=== PATIENT | female | born 1945 | race Caucasian/White ===

== ENCOUNTER 2016-05-07 13:17 | Inpatient (IN) | payer MEDICARE, MEDICAID ==
[~2016-05-07] VITALS: Ht 162.6 cm; Wt 77.4 kg
[2016-05-07 13:56] LABS: HEMOGLOBIN 11.1 g/dL (12.0-16.0); MEAN CORPUSCULAR HEMOGLOBIN 27.3 pg (26.0-34.0); MEAN CORPUSCULAR HGB CONC 30.7 G/dL (31.0-37.0); MEAN CORPUSCULAR VOLUME 89 fL (80-100); PLATELET COUNT (AUTO) 317 K/uL (150-450); RED BLOOD CELL COUNT(AUTO) 4.04 MIL/uL (4.00-5.20); RED CELL DISTRIBUTION WIDTH 18.7 % (11.5-14.5)
[2016-05-07] MEDS ORDERED: CYCL10 PO (14:02)
[2016-05-07] MEDS ORDERED: HYDR-309 PO (14:02)
[2016-05-07] MEDS ORDERED: MULT-248 PO (14:02)
[2016-05-07] MEDS ORDERED: ACET-2247 PO (14:02)
[2016-05-07] MEDS ORDERED: ONDA4 PO (14:02)
[2016-05-07] MEDS ORDERED: MIRALAX PO (14:02)
[2016-05-07] MEDS ORDERED: FERR-89 PO (14:02)
[2016-05-07] MEDS ORDERED: VITAD400 PO (14:02)
[2016-05-07] MEDS ORDERED: LEVO125 PO (14:02)
[2016-05-07 14:07] LABS: ANION GAP 9 mmol/L (8-16); CALCIUM, TOTAL 9.2 mg/dL (8.8-10.5); CARBON DIOXIDE 27 mmol/L (22-29); CHLORIDE 99 mmol/L (98-107); CREATININE 0.97 mg/dL (0.60-1.30); GLOMERULAR FILTR. RATE CALC 57 mL/min (>60); SODIUM SERUM 135 mmol/L (136-145); UREA NITROGEN, BLOOD 21 mg/dL (7-18)
[2016-05-07 14:10] LABS: WHITE BLOOD COUNT (AUTO) 70.9 K/uL (4.5-11.0)
[2016-05-07 14:13] LABS: ALANINE AMINOTRANSFERASE 33 U/L (12-78); ASPARTATE AMINOTRANSFERASE 31 U/L (15-37); BILIRUBIN,TOTAL 0.2 mg/dL (0.1-1.0); TOTAL PROTEIN, SERUM 7.4 g/dL (6.4-8.2)
[2016-05-07 14:25] LABS: BAND NEUTROPHILS % (MANUAL) 5 % (1-5); LYMPHOCYTES % (MANUAL) 82 % (22-44); RBC MORPHOLOGY COMMENT ABNORMAL RBC MORPH; REACTIVE LYMPHOCYTES 3 % (0-0); TOTAL CELLS COUNTED 100
[2016-05-07] MEDS ORDERED: HALOPERIDOL LACTATE 5 MG/ML VIAL IM ONE (14:30)
[2016-05-07] MEDS ORDERED: DiphenhydrAMINE HCL 50 MG/ML VIAL IM ONE (14:30)
[2016-05-07] MEDS ORDERED: LORazepam 2 MG/ML VIAL IM ONE (14:30)
[2016-05-07 14:34] LABS: HEMATOCRIT 39.7 % (36-46); HEMOGLOBIN 12.4 g/dL (12.0-16.0); MEAN CORPUSCULAR HEMOGLOBIN 27.6 pg (26.0-34.0); MEAN CORPUSCULAR HGB CONC 31.2 G/dL (31.0-37.0); MEAN CORPUSCULAR VOLUME 89 fL (80-100); PLATELET COUNT (AUTO) 332 K/uL (150-450); RED BLOOD CELL COUNT(AUTO) 4.48 MIL/uL (4.00-5.20); RED CELL DISTRIBUTION WIDTH 18.8 % (11.5-14.5)
[2016-05-07 14:43] LABS: WHITE BLOOD COUNT (AUTO) 78.9 K/uL (4.5-11.0)
[2016-05-07 14:57] LABS: RBC MORPHOLOGY COMMENT ABNORMAL RBC MORPH
[2016-05-07 15:06] LABS: BAND NEUTROPHILS % (MANUAL) 4 % (1-5); LYMPHOCYTES % (MANUAL) 82 % (22-44); REACTIVE LYMPHOCYTES 1 % (0-0); TOTAL CELLS COUNTED 100
[2016-05-07 15:07] LABS: THYROID STIMULATING HORMONE 7.81 uIU/mL (0.36-3.74)
[2016-05-07 15:17] LABS: APPEARANCE,URINE CLEAR (CLEAR); GLUCOSE, URINE (UA) NEGATIVE (NEGATIVE); KETONES,URINE NEGATIVE (NEGATIVE); LEUKOCYTE ESTERASE ,URINE NEGATIVE (NEGATIVE); OCCULT BLOOD,URINE NEGATIVE (NEGATIVE); PROTEIN,URINE NEGATIVE (NEGATIVE)
[2016-05-07 15:20] LABS: ADD UA MICROSCOPIC NO
[2016-05-07] MEDS ORDERED: HALOPERIDOL 5 MG TABLET PO PRN (16:30)
[2016-05-07] MEDS ORDERED: TraMADol HCL 50 MG TABLET PO PRN (16:45)
[2016-05-08] VITALS (7 sets, daily range): BP systolic 116–126; BP diastolic 64–83
[2016-05-08] MEDS: FERROUS SULFATE 325 MG EC TABLET PO SCH (06:12)
[2016-05-08] MEDS: LEVOTHYROXINE SODIUM 125 MCG TABLET PO SCH (06:12)
[2016-05-08] MEDS: CYCLOBENZAPRINE HCL 10 MG TABLET PO PRN ×2 (06:12→17:09)
[2016-05-08] MEDS: MULTIVITAMINS WITH MINERALS, THERAPEUTIC TABLET PO SCH (08:21)
[2016-05-08] MEDS: LORazepam 2 MG TABLET PO PRN ×2 (08:27→17:09)
[2016-05-08] MEDS: ONDANSETRON HCL 4 MG TABLET PO PRN ×2 (08:27→17:09)
[2016-05-08] MEDS ORDERED: POLYETHYLENE GLYCOL 3350 17 GM PACKET PO SCH ×2 (09:00→15:00)
[2016-05-08] MEDS ORDERED: CHOLECALCIFEROL (VIT D3) 400 UNITS TABLET PO SCH (09:00)
[2016-05-08] MEDS ORDERED: HYDROCODONE/ACETAMINOPHEN 5-325 MG TABLET PO PRN (10:30)
[2016-05-08] MEDS: OLANZapine 5 MG TABLET PO SCH ×2 (13:16→21:01)
[2016-05-08] MEDS: HYDROCODONE/ACETAMINOPHEN 5-325 MG TABLET PO PRN ×2 (13:39→19:40)
[2016-05-08] MEDS: POLYETHYLENE GLYCOL 3350 17 GM PACKET PO SCH (17:10)
[2016-05-08] MEDS: ZOLPIDEM TARTRATE 10 MG TABLET PO PRN (21:00)
[2016-05-09] MEDS: HYDROCODONE/ACETAMINOPHEN 5-325 MG TABLET PO PRN ×3 (04:04→20:32)
[2016-05-09 04:05] VITALS: BP 122/67
[2016-05-09] MEDS: ONDANSETRON HCL 4 MG TABLET PO PRN ×3 (04:05→20:33)
[2016-05-09] MEDS: CYCLOBENZAPRINE HCL 10 MG TABLET PO PRN ×2 (06:16→17:09)
[2016-05-09] MEDS: FERROUS SULFATE 325 MG EC TABLET PO SCH (06:36)
[2016-05-09] MEDS: LEVOTHYROXINE SODIUM 125 MCG TABLET PO SCH (06:36)
[2016-05-09] MEDS: OLANZapine 5 MG TABLET PO SCH ×2 (09:00→20:36)
[2016-05-09] MEDS: MULTIVITAMINS WITH MINERALS, THERAPEUTIC TABLET PO SCH (10:17)
[2016-05-09] MEDS ORDERED: CHOLECALCIFEROL (VIT D3) 1,000 UNITS TABLET PO SCH (13:45)
[2016-05-09] MEDS: CHOLECALCIFEROL (VIT D3) 2,000 UNITS TABLET PO SCH (15:20)
[2016-05-09] MEDS: POLYETHYLENE GLYCOL 3350 17 GM PACKET PO SCH (16:21)
[2016-05-10] MEDS: CYCLOBENZAPRINE HCL 10 MG TABLET PO PRN ×3 (03:48→18:30)
[2016-05-10] MEDS: ONDANSETRON HCL 4 MG TABLET PO PRN ×3 (03:48→18:30)
[2016-05-10] MEDS: HYDROCODONE/ACETAMINOPHEN 5-325 MG TABLET PO PRN ×4 (03:48→23:25)
[2016-05-10] MEDS: LEVOTHYROXINE SODIUM 125 MCG TABLET PO SCH (06:31)
[2016-05-10] MEDS: FERROUS SULFATE 325 MG EC TABLET PO SCH (06:31)
[2016-05-10 07:48] LABS: HEMOGLOBIN A1C 5.2 % (4.5-6.2)
[2016-05-10 08:54] LABS: CHOL/HDL RATIO 1.8 (3.9-5.7); CREATINE KINASE, TOTAL 56 U/L (26-192); THYROID STIMULATING HORMONE 9.73 uIU/mL (0.36-3.74)
[2016-05-10] MEDS: OLANZapine 5 MG TABLET PO SCH ×2 (09:00→21:00)
[2016-05-10] MEDS ORDERED: CHOLECALCIFEROL (VIT D3) 2,000 UNITS TABLET PO SCH (09:00)
[2016-05-10] MEDS: MULTIVITAMINS WITH MINERALS, THERAPEUTIC TABLET PO SCH (09:45)
[2016-05-10] MEDS: CHOLECALCIFEROL (VIT D3) 2,000 UNITS TABLET PO SCH (09:46)
[2016-05-10 17:22] VITALS: BP 126/83
[2016-05-10] MEDS: POLYETHYLENE GLYCOL 3350 17 GM PACKET PO SCH (17:22)
[2016-05-11] MEDS: ONDANSETRON HCL 4 MG TABLET PO PRN ×4 (01:03→20:31)
[2016-05-11] MEDS: ZOLPIDEM TARTRATE 10 MG TABLET PO PRN (01:03)
[2016-05-11] MEDS: CYCLOBENZAPRINE HCL 10 MG TABLET PO PRN ×2 (01:09→08:14)
[2016-05-11 01:10] VITALS: BP 135/70
[2016-05-11] MEDS: HYDROCODONE/ACETAMINOPHEN 5-325 MG TABLET PO PRN ×3 (05:28→20:30)
[2016-05-11] MEDS: FERROUS SULFATE 325 MG EC TABLET PO SCH (06:43)
[2016-05-11] MEDS: LEVOTHYROXINE SODIUM 125 MCG TABLET PO SCH (06:43)
[2016-05-11] MEDS: LORazepam 2 MG TABLET PO PRN ×2 (08:13→13:57)
[2016-05-11] MEDS: MULTIVITAMINS WITH MINERALS, THERAPEUTIC TABLET PO SCH (08:13)
[2016-05-11] MEDS: OLANZapine 5 MG TABLET PO SCH ×2 (08:13→21:00)
[2016-05-11] MEDS: CHOLECALCIFEROL (VIT D3) 2,000 UNITS TABLET PO SCH (08:13)
[2016-05-11 12:56] LABS: HEPATITIS Bs ANTIGEN SCREEN P Negative (Negative); HEPATITIS C AB SCREEN <0.1 s/co ratio (0.0-0.9)
[2016-05-11] MEDS: POLYETHYLENE GLYCOL 3350 17 GM PACKET PO SCH (17:31)
[2016-05-12] MEDS: HYDROCODONE/ACETAMINOPHEN 5-325 MG TABLET PO PRN ×3 (02:32→18:37)
[2016-05-12] MEDS: ONDANSETRON HCL 4 MG TABLET PO PRN ×3 (02:32→18:38)
[2016-05-12] MEDS: CYCLOBENZAPRINE HCL 10 MG TABLET PO PRN (03:30)
[2016-05-12] MEDS: FERROUS SULFATE 325 MG EC TABLET PO SCH (07:25)
[2016-05-12] MEDS: LEVOTHYROXINE SODIUM 125 MCG TABLET PO SCH (07:25)
[2016-05-12] MEDS: MULTIVITAMINS WITH MINERALS, THERAPEUTIC TABLET PO SCH (10:34)
[2016-05-12] MEDS: OLANZapine 5 MG TABLET PO SCH (10:34)
[2016-05-12] MEDS: CHOLECALCIFEROL (VIT D3) 2,000 UNITS TABLET PO SCH (10:34)
[2016-05-12] MEDS: POLYETHYLENE GLYCOL 3350 17 GM PACKET PO SCH (17:41)
[2016-05-12 20:35] LABS: APPEARANCE,URINE CLEAR (CLEAR); GLUCOSE, URINE (UA) NEGATIVE (NEGATIVE); KETONES,URINE NEGATIVE (NEGATIVE); OCCULT BLOOD,URINE NEGATIVE (NEGATIVE); PROTEIN,URINE NEGATIVE (NEGATIVE)
[2016-05-12 20:39] LABS: ADD UA MICROSCOPIC NO; LEUKOCYTE ESTERASE ,URINE NEGATIVE (NEGATIVE)
[2016-05-13] MEDS: CYCLOBENZAPRINE HCL 10 MG TABLET PO PRN ×3 (02:55→17:33)
[2016-05-13] MEDS: HYDROCODONE/ACETAMINOPHEN 5-325 MG TABLET PO PRN ×3 (02:55→16:01)
[2016-05-13] MEDS: ONDANSETRON HCL 4 MG TABLET PO PRN ×3 (02:55→16:01)
[2016-05-13] MEDS: LEVOTHYROXINE SODIUM 125 MCG TABLET PO SCH (06:30)
[2016-05-13] MEDS: FERROUS SULFATE 325 MG EC TABLET PO SCH (06:30)
[2016-05-13 08:49] VITALS: BP 163/67
[2016-05-13] MEDS: OLANZapine 5 MG TABLET PO SCH ×2 (09:00→20:57)
[2016-05-13 09:17] VITALS: BP 163/77
[2016-05-13] MEDS: MULTIVITAMINS WITH MINERALS, THERAPEUTIC TABLET PO SCH (09:17)
[2016-05-13] MEDS: CHOLECALCIFEROL (VIT D3) 2,000 UNITS TABLET PO SCH (09:17)
[2016-05-13 16:02] VITALS: BP 143/84
[2016-05-13] MEDS: POLYETHYLENE GLYCOL 3350 17 GM PACKET PO SCH (17:31)
[2016-05-14] MEDS: ONDANSETRON HCL 4 MG TABLET PO PRN ×3 (05:03→23:50)
[2016-05-14] MEDS: HYDROCODONE/ACETAMINOPHEN 5-325 MG TABLET PO PRN ×3 (05:03→23:50)
[2016-05-14] MEDS: CYCLOBENZAPRINE HCL 10 MG TABLET PO PRN ×2 (05:03→23:50)
[2016-05-14] MEDS: LEVOTHYROXINE SODIUM 125 MCG TABLET PO SCH (06:32)
[2016-05-14] MEDS: FERROUS SULFATE 325 MG EC TABLET PO SCH (06:32)
[2016-05-14] MEDS: CHOLECALCIFEROL (VIT D3) 2,000 UNITS TABLET PO SCH (08:36)
[2016-05-14] MEDS: OLANZapine 5 MG TABLET PO SCH ×2 (08:36→20:42)
[2016-05-14] MEDS: LORazepam 2 MG TABLET PO PRN (08:36)
[2016-05-14] MEDS: MULTIVITAMINS WITH MINERALS, THERAPEUTIC TABLET PO SCH (08:37)
[2016-05-14] MEDS: POLYETHYLENE GLYCOL 3350 17 GM PACKET PO SCH (17:05)
[2016-05-15] MEDS: LEVOTHYROXINE SODIUM 125 MCG TABLET PO SCH (06:34)
[2016-05-15] MEDS: FERROUS SULFATE 325 MG EC TABLET PO SCH (06:34)
[2016-05-15] MEDS: HYDROCODONE/ACETAMINOPHEN 5-325 MG TABLET PO PRN ×2 (06:41→15:47)
[2016-05-15] MEDS: ONDANSETRON HCL 4 MG TABLET PO PRN ×2 (06:42→15:47)
[2016-05-15] MEDS: CYCLOBENZAPRINE HCL 10 MG TABLET PO PRN ×2 (06:42→18:30)
[2016-05-15] MEDS: OLANZapine 5 MG TABLET PO SCH ×2 (09:00→20:07)
[2016-05-15] MEDS: MULTIVITAMINS WITH MINERALS, THERAPEUTIC TABLET PO SCH (09:00)
[2016-05-15] MEDS: CHOLECALCIFEROL (VIT D3) 2,000 UNITS TABLET PO SCH (09:00)
[2016-05-15] MEDS: POLYETHYLENE GLYCOL 3350 17 GM PACKET PO SCH (16:42)
[2016-05-15 16:47] VITALS: BP 139/91
[2016-05-15] MEDS: MELATONIN 3 MG TABLET PO PRN (21:05)
[2016-05-16] MEDS: FERROUS SULFATE 325 MG EC TABLET PO SCH (06:52)
[2016-05-16] MEDS: LEVOTHYROXINE SODIUM 125 MCG TABLET PO SCH (06:52)
[2016-05-16] MEDS: LORazepam 2 MG TABLET PO PRN ×4 (07:26→19:01)
[2016-05-16] MEDS: ONDANSETRON HCL 4 MG TABLET PO PRN ×3 (07:26→20:11)
[2016-05-16] MEDS: OLANZapine 5 MG TABLET PO SCH ×3 (07:26→20:21)
[2016-05-16] MEDS: HYDROCODONE/ACETAMINOPHEN 5-325 MG TABLET PO PRN ×3 (07:26→20:11)
[2016-05-16] MEDS: CYCLOBENZAPRINE HCL 10 MG TABLET PO PRN ×2 (07:27→13:51)
[2016-05-16] MEDS: MULTIVITAMINS WITH MINERALS, THERAPEUTIC TABLET PO SCH (08:55)
[2016-05-16] MEDS: CHOLECALCIFEROL (VIT D3) 2,000 UNITS TABLET PO SCH (08:55)
[2016-05-16] MEDS ORDERED: LORazepam 2 MG/ML VIAL ONE (12:23)
[2016-05-16] MEDS ORDERED: DiphenhydrAMINE HCL 50 MG/ML VIAL ONE (12:23)
[2016-05-16] MEDS ORDERED: HALOPERIDOL LACTATE 5 MG/ML VIAL IM ONE (12:30)
[2016-05-16] MEDS ORDERED: LORazepam 2 MG/ML VIAL IM ONE (12:30)
[2016-05-16] MEDS ORDERED: DiphenhydrAMINE HCL 50 MG/ML VIAL IM ONE (12:30)
[2016-05-16] MEDS: POLYETHYLENE GLYCOL 3350 17 GM PACKET PO SCH (17:04)
[2016-05-17] MEDS: CYCLOBENZAPRINE HCL 10 MG TABLET PO PRN (02:40)
[2016-05-17] MEDS: HYDROCODONE/ACETAMINOPHEN 5-325 MG TABLET PO PRN ×3 (02:50→18:15)
[2016-05-17] MEDS: ONDANSETRON HCL 4 MG TABLET PO PRN ×3 (02:50→18:15)
[2016-05-17] MEDS: LEVOTHYROXINE SODIUM 125 MCG TABLET PO SCH (06:50)
[2016-05-17] MEDS: FERROUS SULFATE 325 MG EC TABLET PO SCH (06:50)
[2016-05-17] MEDS: OLANZapine 10 MG TABLET PO SCH ×2 (09:22→20:14)
[2016-05-17] MEDS: MULTIVITAMINS WITH MINERALS, THERAPEUTIC TABLET PO SCH (09:23)
[2016-05-17] MEDS: CHOLECALCIFEROL (VIT D3) 2,000 UNITS TABLET PO SCH (09:24)
[2016-05-17] MEDS: POLYETHYLENE GLYCOL 3350 17 GM PACKET PO SCH (17:41)
[2016-05-17] MEDS: LORazepam 2 MG TABLET PO PRN (18:15)
[2016-05-18] MEDS: FERROUS SULFATE 325 MG EC TABLET PO SCH (07:02)
[2016-05-18] MEDS: LEVOTHYROXINE SODIUM 125 MCG TABLET PO SCH (07:02)
[2016-05-18] MEDS: ONDANSETRON HCL 4 MG TABLET PO PRN ×2 (08:30→16:42)
[2016-05-18] MEDS: MULTIVITAMINS WITH MINERALS, THERAPEUTIC TABLET PO SCH (08:30)
[2016-05-18] MEDS: CHOLECALCIFEROL (VIT D3) 2,000 UNITS TABLET PO SCH (08:30)
[2016-05-18] MEDS: OLANZapine 10 MG TABLET PO SCH ×2 (08:30→20:51)
[2016-05-18] MEDS: CYCLOBENZAPRINE HCL 10 MG TABLET PO PRN ×2 (08:32→16:37)
[2016-05-18] MEDS: HYDROCODONE/ACETAMINOPHEN 5-325 MG TABLET PO PRN ×2 (08:33→16:36)
[2016-05-18] MEDS ORDERED: HALOPERIDOL LACTATE 5 MG/ML VIAL IM ONE (09:00)
[2016-05-18] MEDS ORDERED: DiphenhydrAMINE HCL 50 MG/ML VIAL IM ONE (09:00)
[2016-05-18] MEDS ORDERED: LORazepam 2 MG/ML VIAL IM ONE (09:00)
[2016-05-18 16:33] VITALS: BP 188/98
[2016-05-18] MEDS: POLYETHYLENE GLYCOL 3350 17 GM PACKET PO SCH (17:03)
[2016-05-19] MEDS: ACETAMINOPHEN 325 MG TABLET PO PRN ×2 (06:12→18:08)
[2016-05-19] MEDS: CYCLOBENZAPRINE HCL 10 MG TABLET PO PRN ×3 (06:12→18:08)
[2016-05-19] MEDS: FERROUS SULFATE 325 MG EC TABLET PO SCH (06:56)
[2016-05-19] MEDS: LEVOTHYROXINE SODIUM 125 MCG TABLET PO SCH (06:56)
[2016-05-19] MEDS: MULTIVITAMINS WITH MINERALS, THERAPEUTIC TABLET PO SCH (10:04)
[2016-05-19] MEDS: CHOLECALCIFEROL (VIT D3) 2,000 UNITS TABLET PO SCH (10:04)
[2016-05-19] MEDS: OLANZapine 10 MG TABLET PO SCH ×2 (10:04→21:00)
[2016-05-19] MEDS: TraMADol HCL 50 MG TABLET PO PRN ×2 (14:47→20:55)
[2016-05-19] MEDS: POLYETHYLENE GLYCOL 3350 17 GM PACKET PO SCH (17:07)
[2016-05-19 18:18] VITALS: BP 156/76
[2016-05-19 20:52] VITALS: BP 148/62
[2016-05-19] MEDS: HALOPERIDOL LACTATE 5 MG/ML VIAL IM PRN (20:52)
[2016-05-20] MEDS: TraMADol HCL 50 MG TABLET PO PRN ×4 (02:57→22:34)
[2016-05-20] MEDS: LEVOTHYROXINE SODIUM 125 MCG TABLET PO SCH (06:38)
[2016-05-20] MEDS: FERROUS SULFATE 325 MG EC TABLET PO SCH (06:38)
[2016-05-20] MEDS: ACETAMINOPHEN 325 MG TABLET PO PRN (06:38)
[2016-05-20] MEDS: CYCLOBENZAPRINE HCL 10 MG TABLET PO PRN ×3 (06:39→22:34)
[2016-05-20] MEDS: OLANZapine 10 MG TABLET PO SCH ×3 (09:00→21:00)
[2016-05-20] MEDS: MULTIVITAMINS WITH MINERALS, THERAPEUTIC TABLET PO SCH (09:20)
[2016-05-20] MEDS: CHOLECALCIFEROL (VIT D3) 2,000 UNITS TABLET PO SCH (09:20)
[2016-05-20] MEDS: HALOPERIDOL LACTATE 5 MG/ML VIAL IM PRN ×2 (09:22→22:16)
[2016-05-20] MEDS: POLYETHYLENE GLYCOL 3350 17 GM PACKET PO SCH (17:15)
[2016-05-20 22:30] VITALS: BP 131/81
[2016-05-21] MEDS: TraMADol HCL 50 MG TABLET PO PRN ×3 (05:41→19:00)
[2016-05-21] MEDS: ACETAMINOPHEN 325 MG TABLET PO PRN (05:41)
[2016-05-21] MEDS: CYCLOBENZAPRINE HCL 10 MG TABLET PO PRN ×3 (05:41→19:30)
[2016-05-21] MEDS: FERROUS SULFATE 325 MG EC TABLET PO SCH (06:41)
[2016-05-21] MEDS: LEVOTHYROXINE SODIUM 125 MCG TABLET PO SCH (06:42)
[2016-05-21] MEDS: HALOPERIDOL LACTATE 5 MG/ML VIAL IM PRN (09:00)
[2016-05-21] MEDS: MULTIVITAMINS WITH MINERALS, THERAPEUTIC TABLET PO SCH (09:00)
[2016-05-21] MEDS: CHOLECALCIFEROL (VIT D3) 2,000 UNITS TABLET PO SCH (09:00)
[2016-05-21] MEDS: OLANZapine 10 MG TABLET PO SCH (09:00)
[2016-05-21] MEDS: FLUTICASONE PROPIONATE 50 MCG/SPRAY 16 GM NASAL SPRAY NASAL SCH (11:39)
[2016-05-21] MEDS: LORATADINE 10 MG TABLET PO SCH (11:39)
[2016-05-21 12:55] VITALS: BP 117/70
[2016-05-21] MEDS: POLYETHYLENE GLYCOL 3350 17 GM PACKET PO SCH (16:17)
[2016-05-21 19:00] VITALS: BP 126/78
[2016-05-21] MEDS ORDERED: HALOPERIDOL 5 MG TABLET PO SCH (20:00)
[2016-05-21] MEDS: HALOPERIDOL 5 MG TABLET PO SCH ×2 (20:59→21:00)
[2016-05-22] MEDS: FERROUS SULFATE 325 MG EC TABLET PO SCH (07:09)
[2016-05-22] MEDS: LEVOTHYROXINE SODIUM 125 MCG TABLET PO SCH (07:09)
[2016-05-22] MEDS: CYCLOBENZAPRINE HCL 10 MG TABLET PO PRN ×2 (08:31→14:55)
[2016-05-22] MEDS: FLUTICASONE PROPIONATE 50 MCG/SPRAY 16 GM NASAL SPRAY NASAL SCH (08:31)
[2016-05-22] MEDS: MULTIVITAMINS WITH MINERALS, THERAPEUTIC TABLET PO SCH (08:32)
[2016-05-22] MEDS: HALOPERIDOL 5 MG TABLET PO SCH ×2 (08:32→20:48)
[2016-05-22] MEDS: LORATADINE 10 MG TABLET PO SCH (08:32)
[2016-05-22] MEDS: CHOLECALCIFEROL (VIT D3) 2,000 UNITS TABLET PO SCH (08:32)
[2016-05-22] MEDS: TraMADol HCL 50 MG TABLET PO PRN ×3 (08:32→21:15)
[2016-05-22] MEDS: ACETAMINOPHEN 325 MG TABLET PO PRN (08:34)
[2016-05-22] MEDS: POLYETHYLENE GLYCOL 3350 17 GM PACKET PO SCH (16:26)
[2016-05-22] MEDS ORDERED: FUROSEMIDE 20 MG TABLET PO SCH (17:00)
[2016-05-22] MEDS ORDERED: HALOPERIDOL LACTATE 5 MG/ML VIAL IM ONE (19:30)
[2016-05-22 21:00] VITALS: BP 155/83
[2016-05-22 21:33] VITALS: BP 155/83
[2016-05-22] MEDS: MELATONIN 3 MG TABLET PO PRN (22:15)
[2016-05-23 02:40] VITALS: BP 171/87
[2016-05-23] MEDS ORDERED: LORazepam 2 MG/ML VIAL IM ONE (03:00)
[2016-05-23] MEDS ORDERED: DiphenhydrAMINE HCL 50 MG/ML VIAL IM ONE (03:00)
[2016-05-23] MEDS ORDERED: HALOPERIDOL LACTATE 5 MG/ML VIAL IM ONE (03:00)
[2016-05-23] MEDS: LEVOTHYROXINE SODIUM 125 MCG TABLET PO SCH (07:17)
[2016-05-23] MEDS: FERROUS SULFATE 325 MG EC TABLET PO SCH (07:17)
[2016-05-23 08:11] VITALS: BP 147/68
[2016-05-23] MEDS: CHOLECALCIFEROL (VIT D3) 2,000 UNITS TABLET PO SCH (08:42)
[2016-05-23] MEDS: LORATADINE 10 MG TABLET PO SCH (08:42)
[2016-05-23] MEDS: MULTIVITAMINS WITH MINERALS, THERAPEUTIC TABLET PO SCH (08:42)
[2016-05-23] MEDS: TraMADol HCL 50 MG TABLET PO PRN ×2 (08:56→17:38)
[2016-05-23] MEDS: CYCLOBENZAPRINE HCL 10 MG TABLET PO PRN ×2 (08:56→17:37)
[2016-05-23] MEDS: FLUTICASONE PROPIONATE 50 MCG/SPRAY 16 GM NASAL SPRAY NASAL SCH ×2 (08:57→16:56)
[2016-05-23] MEDS ORDERED: HALOPERIDOL LACTATE 5 MG/ML VIAL IM PRN (09:00)
[2016-05-23] MEDS ORDERED: HALOPERIDOL 5 MG TABLET PO SCH (09:00)
[2016-05-23] MEDS: HALOPERIDOL 5 MG TABLET PO SCH ×2 (09:09→20:18)
[2016-05-23] MEDS: POLYETHYLENE GLYCOL 3350 17 GM PACKET PO SCH (16:55)
[2016-05-23 17:35] VITALS: BP 122/68
[2016-05-24] MEDS: CYCLOBENZAPRINE HCL 10 MG TABLET PO PRN ×3 (06:14→20:30)
[2016-05-24] MEDS: TraMADol HCL 50 MG TABLET PO PRN ×3 (06:15→19:05)
[2016-05-24] MEDS: LEVOTHYROXINE SODIUM 125 MCG TABLET PO SCH (06:54)
[2016-05-24] MEDS: FERROUS SULFATE 325 MG EC TABLET PO SCH (06:54)
[2016-05-24] MEDS: MULTIVITAMINS WITH MINERALS, THERAPEUTIC TABLET PO SCH (08:27)
[2016-05-24] MEDS: CHOLECALCIFEROL (VIT D3) 2,000 UNITS TABLET PO SCH (08:27)
[2016-05-24] MEDS: LORATADINE 10 MG TABLET PO SCH (08:27)
[2016-05-24] MEDS: HALOPERIDOL 5 MG TABLET PO SCH ×2 (08:28→20:29)
[2016-05-24] MEDS: FLUTICASONE PROPIONATE 50 MCG/SPRAY 16 GM NASAL SPRAY NASAL SCH ×2 (08:28→16:19)
[2016-05-24 12:15] VITALS: BP 123/61
[2016-05-24 16:00] VITALS: BP 150/70
[2016-05-24] MEDS: POLYETHYLENE GLYCOL 3350 17 GM PACKET PO SCH (16:19)
[2016-05-25] MEDS: FERROUS SULFATE 325 MG EC TABLET PO SCH (07:02)
[2016-05-25] MEDS: LEVOTHYROXINE SODIUM 125 MCG TABLET PO SCH (07:02)
[2016-05-25] MEDS: CYCLOBENZAPRINE HCL 10 MG TABLET PO PRN ×2 (07:11→13:15)
[2016-05-25] MEDS: TraMADol HCL 50 MG TABLET PO PRN ×2 (07:11→13:15)
[2016-05-25 08:00] VITALS: BP 148/62
[2016-05-25] MEDS: MULTIVITAMINS WITH MINERALS, THERAPEUTIC TABLET PO SCH (08:07)
[2016-05-25] MEDS: FLUTICASONE PROPIONATE 50 MCG/SPRAY 16 GM NASAL SPRAY NASAL SCH (08:07)
[2016-05-25] MEDS: HALOPERIDOL 5 MG TABLET PO SCH (08:07)
[2016-05-25] MEDS: LORATADINE 10 MG TABLET PO SCH (08:07)
[2016-05-25] MEDS: CHOLECALCIFEROL (VIT D3) 2,000 UNITS TABLET PO SCH (08:07)
[2016-05-25] MEDS ORDERED: HALO10 PO (11:25)
[2016-05-25] MEDS ORDERED: LORA10TA7 PO (11:28)
[2016-05-25] MEDS ORDERED: FLUT16H NASAL (11:28)
== END 2016-05-25 13:45 | disposition home or self-care (01) | DRG 885 ==
LOC: EMS 13:20 → 3EC 16:20
PROVIDERS: ATTEND Psychiatry & Neurology Psychiatry
DX: F31.2 Bipolar disorder, current episode manic severe with psychotic features (principal); C91.10 Chronic lymphocytic leukemia of B-cell type not having achieved remission; D64.9 Anemia, unspecified; E03.9 Hypothyroidism, unspecified; E55.9 Vitamin D deficiency, unspecified; F60.9 Personality disorder, unspecified; G89.29 Other chronic pain; G62.9 Polyneuropathy, unspecified; I10 Essential (primary) hypertension; J30.9 Allergic rhinitis, unspecified; J32.9 Chronic sinusitis, unspecified; K59.00 Constipation, unspecified; M17.9 Osteoarthritis of knee, unspecified; M62.838 Other muscle spasm; B95.7 Other staphylococcus as the cause of diseases classified elsewhere; M20.40 Other hammer toe(s) (acquired), unspecified foot; M21.619 Bunion of unspecified foot; Z53.20 Procedure and treatment not carried out because of patient's decision for unspecified reasons; Z82.49 Family history of ischemic heart disease and other diseases of the circulatory system; Z88.2 Allergy status to sulfonamides; Z91.19 Patient's noncompliance with other medical treatment and regimen; Z78.1 Physical restraint status; Z88.5 Allergy status to narcotic agent; Z79.1 Long term (current) use of non-steroidal anti-inflammatories (NSAID); Z79.899 Other long term (current) drug therapy; Z98.890 Other specified postprocedural states
CPT/HCPCS: 70450; 72080; 72100; 80074; 82306; 82607; 82746; 83036; 83735; 84439; 84443; 85007; 85651; 86592; 87040; 87070; 87081; 87147; 87205; 96372; 97110; 97116; 97162; 97530; 99285; G0480; J1200; J1630; J2060; Q0162

== ENCOUNTER 2016-05-28 18:55 | Inpatient (IN) | payer MEDICARE, MEDICAID ==
[~2016-05-28] VITALS: Ht 157.5 cm; Wt 76.7 kg
[~2016-05-28 18:55] MED LIST: FERR-89 PO; FLUT16H NASAL; HALO10 PO; LEVO125 PO; LORA10TA7 PO; MIRALAX PO; MULT-248 PO; VITAD400 PO
[2016-05-28] MEDS ORDERED: CYCL10 PO (19:30)
[2016-05-28] MEDS ORDERED: TRAM50TA4 PO (19:30)
[2016-05-28 19:44] LABS: HEMATOCRIT 39.9 % (36-46); HEMOGLOBIN 12.2 g/dL (12.0-16.0); MEAN CORPUSCULAR HEMOGLOBIN 26.8 pg (26.0-34.0); MEAN CORPUSCULAR HGB CONC 30.5 G/dL (31.0-37.0); MEAN CORPUSCULAR VOLUME 88 fL (80-100); PLATELET COUNT (AUTO) 280 K/uL (150-450); RED BLOOD CELL COUNT(AUTO) 4.53 MIL/uL (4.00-5.20); RED CELL DISTRIBUTION WIDTH 17.6 % (11.5-14.5)
[2016-05-28 19:45] LABS: WHITE BLOOD COUNT (AUTO) 82.4 K/uL (4.5-11.0)
[2016-05-28 19:58] LABS: ALANINE AMINOTRANSFERASE 28 U/L (12-78); ALBUMIN 4.2 g/dL (3.4-5.0); ANION GAP 9 mmol/L (8-16); ASPARTATE AMINOTRANSFERASE 17 U/L (15-37); BILIRUBIN,TOTAL 0.4 mg/dL (0.1-1.0); CALCIUM, TOTAL 9.4 mg/dL (8.8-10.5); CARBON DIOXIDE 30 mmol/L (22-29); CHLORIDE 102 mmol/L (98-107); CREATININE 1.08 mg/dL (0.60-1.30); GLOMERULAR FILTR. RATE CALC 50 mL/min (>60); SODIUM SERUM 141 mmol/L (136-145); TOTAL PROTEIN, SERUM 7.6 g/dL (6.4-8.2); UREA NITROGEN, BLOOD 27 mg/dL (7-18)
[2016-05-28 20:39] LABS: LYMPHOCYTES % (MANUAL) 92 % (22-44); REACTIVE LYMPHOCYTES 6 % (0-0); TOTAL CELLS COUNTED 100
[2016-05-28] MEDS ORDERED: DiphenhydrAMINE HCL 50 MG/ML VIAL IM ONE (20:45)
[2016-05-28] MEDS ORDERED: LORazepam 2 MG/ML VIAL IM ONE (20:45)
[2016-05-28] MEDS ORDERED: HALOPERIDOL LACTATE 5 MG/ML VIAL IM ONE (20:45)
[2016-05-28] MEDS ORDERED: ZOLPIDEM TARTRATE 10 MG TABLET PO PRN (22:30)
[2016-05-28] MEDS ORDERED: QUEtiapine FUMARATE 100 MG TABLET PO PRN (22:30)
[2016-05-28] MEDS ORDERED: LORazepam 2 MG TABLET PO PRN (22:30)
[2016-05-28 22:45] VITALS: BP 131/54
[2016-05-29 02:03] VITALS: BP 132/69
[2016-05-29 08:00] VITALS: BP 114/52
[2016-05-29] MEDS ORDERED: ONDANSETRON HCL 4 MG TABLET PO PRN (09:45)
[2016-05-29] MEDS ORDERED: ACETAMINOPHEN 325 MG TABLET PO PRN (09:45)
[2016-05-29] MEDS: CHOLECALCIFEROL (VIT D3) 1,000 UNITS TABLET PO SCH (11:01)
[2016-05-29] MEDS: MULTIVITAMINS WITH MINERALS, THERAPEUTIC TABLET PO SCH (11:01)
[2016-05-29] MEDS: LORATADINE 10 MG TABLET PO SCH (11:02)
[2016-05-29] MEDS: LEVOTHYROXINE SODIUM 125 MCG TABLET PO SCH (11:02)
[2016-05-29] MEDS: TraMADol HCL 50 MG TABLET PO PRN ×2 (11:04→19:27)
[2016-05-29] MEDS: CYCLOBENZAPRINE HCL 10 MG TABLET PO PRN ×2 (11:05→19:27)
[2016-05-29] MEDS: FERROUS SULFATE 325 MG EC TABLET PO SCH (11:15)
[2016-05-29 12:05] VITALS: BP 120/68
[2016-05-29] MEDS: FLUTICASONE PROPIONATE 50 MCG/SPRAY 16 GM NASAL SPRAY NASAL SCH ×2 (13:04→17:18)
[2016-05-29] MEDS ORDERED: FLUTICASONE PROPIONATE 50 MCG/SPRAY 16 GM NASAL SPRAY NASAL SCH (17:00)
[2016-05-29] MEDS: POLYETHYLENE GLYCOL 3350 17 GM PACKET PO SCH (17:18)
[2016-05-29 19:16] VITALS: BP 118/70
[2016-05-29 19:25] VITALS: BP 120/88
[2016-05-29] MEDS: HALOPERIDOL 10 MG TABLET PO SCH (20:55)
[2016-05-29] MEDS: DiphenhydrAMINE HCL 25 MG CAPSULE PO PRN (21:12)
[2016-05-30] MEDS: LEVOTHYROXINE SODIUM 125 MCG TABLET PO SCH (06:44)
[2016-05-30] MEDS: FERROUS SULFATE 325 MG EC TABLET PO SCH (06:44)
[2016-05-30] MEDS: CHOLECALCIFEROL (VIT D3) 1,000 UNITS TABLET PO SCH (08:05)
[2016-05-30] MEDS: FLUTICASONE PROPIONATE 50 MCG/SPRAY 16 GM NASAL SPRAY NASAL SCH ×2 (08:05→17:37)
[2016-05-30] MEDS: MULTIVITAMINS WITH MINERALS, THERAPEUTIC TABLET PO SCH (08:05)
[2016-05-30] MEDS: LORATADINE 10 MG TABLET PO SCH (08:05)
[2016-05-30 08:08] VITALS: BP 127/69
[2016-05-30 08:35] VITALS: BP 127/69
[2016-05-30] MEDS: CYCLOBENZAPRINE HCL 10 MG TABLET PO PRN ×2 (08:35→14:36)
[2016-05-30] MEDS: TraMADol HCL 50 MG TABLET PO PRN ×2 (08:35→14:36)
[2016-05-30] MEDS: POLYETHYLENE GLYCOL 3350 17 GM PACKET PO SCH (17:00)
[2016-05-30] MEDS: HALOPERIDOL 10 MG TABLET PO SCH (20:32)
[2016-05-30] MEDS: DiphenhydrAMINE HCL 25 MG CAPSULE PO PRN (20:54)
[2016-05-31] MEDS: CYCLOBENZAPRINE HCL 10 MG TABLET PO PRN ×3 (02:12→17:17)
[2016-05-31] MEDS: TraMADol HCL 50 MG TABLET PO PRN ×4 (02:13→22:00)
[2016-05-31] MEDS: LEVOTHYROXINE SODIUM 125 MCG TABLET PO SCH (06:59)
[2016-05-31] MEDS: FERROUS SULFATE 325 MG EC TABLET PO SCH (07:00)
[2016-05-31 07:56] LABS: THYROID STIMULATING HORMONE 11.83 uIU/mL (0.36-3.74)
[2016-05-31] MEDS: FLUTICASONE PROPIONATE 50 MCG/SPRAY 16 GM NASAL SPRAY NASAL SCH ×2 (08:12→17:17)
[2016-05-31] MEDS: CHOLECALCIFEROL (VIT D3) 1,000 UNITS TABLET PO SCH (08:13)
[2016-05-31] MEDS: LORATADINE 10 MG TABLET PO SCH (08:13)
[2016-05-31] MEDS: MULTIVITAMINS WITH MINERALS, THERAPEUTIC TABLET PO SCH (08:15)
[2016-05-31] MEDS: POLYETHYLENE GLYCOL 3350 17 GM PACKET PO SCH (17:00)
[2016-05-31] MEDS: HALOPERIDOL 10 MG TABLET PO SCH (20:48)
[2016-05-31] MEDS: DiphenhydrAMINE HCL 25 MG CAPSULE PO PRN (20:48)
[2016-06-01] MEDS: FERROUS SULFATE 325 MG EC TABLET PO SCH ×2 (06:48→08:46)
[2016-06-01] MEDS: LEVOTHYROXINE SODIUM 125 MCG TABLET PO SCH (06:48)
[2016-06-01] MEDS: FLUTICASONE PROPIONATE 50 MCG/SPRAY 16 GM NASAL SPRAY NASAL SCH ×2 (08:46→17:00)
[2016-06-01] MEDS: MULTIVITAMINS WITH MINERALS, THERAPEUTIC TABLET PO SCH (08:47)
[2016-06-01] MEDS: CHOLECALCIFEROL (VIT D3) 1,000 UNITS TABLET PO SCH (08:47)
[2016-06-01] MEDS: LORATADINE 10 MG TABLET PO SCH (08:47)
[2016-06-01] MEDS: TraMADol HCL 50 MG TABLET PO PRN ×3 (08:50→21:40)
[2016-06-01] MEDS: CYCLOBENZAPRINE HCL 10 MG TABLET PO PRN ×2 (08:52→23:59)
[2016-06-01] MEDS: POLYETHYLENE GLYCOL 3350 17 GM PACKET PO SCH (17:00)
[2016-06-01] MEDS: DiphenhydrAMINE HCL 25 MG CAPSULE PO PRN (20:27)
[2016-06-01] MEDS: HALOPERIDOL 10 MG TABLET PO SCH (21:00)
[2016-06-02] MEDS: LEVOTHYROXINE SODIUM 125 MCG TABLET PO SCH (06:42)
[2016-06-02] MEDS: TraMADol HCL 50 MG TABLET PO PRN ×2 (07:05→13:16)
[2016-06-02] MEDS: FERROUS SULFATE 325 MG EC TABLET PO SCH (08:43)
[2016-06-02] MEDS: CHOLECALCIFEROL (VIT D3) 1,000 UNITS TABLET PO SCH (08:44)
[2016-06-02] MEDS: FLUTICASONE PROPIONATE 50 MCG/SPRAY 16 GM NASAL SPRAY NASAL SCH ×2 (08:44→19:04)
[2016-06-02] MEDS: LORATADINE 10 MG TABLET PO SCH (08:44)
[2016-06-02] MEDS: MULTIVITAMINS WITH MINERALS, THERAPEUTIC TABLET PO SCH (08:44)
[2016-06-02] MEDS: CYCLOBENZAPRINE HCL 10 MG TABLET PO PRN (14:37)
[2016-06-02] MEDS: POLYETHYLENE GLYCOL 3350 17 GM PACKET PO SCH (17:00)
[2016-06-02] MEDS: HALOPERIDOL 10 MG TABLET PO SCH (21:00)
[2016-06-02] MEDS: DiphenhydrAMINE HCL 25 MG CAPSULE PO PRN (21:01)
[2016-06-03] MEDS: CYCLOBENZAPRINE HCL 10 MG TABLET PO PRN ×3 (03:42→22:21)
[2016-06-03] MEDS: TraMADol HCL 50 MG TABLET PO PRN ×2 (03:42→10:54)
[2016-06-03] MEDS: LEVOTHYROXINE SODIUM 125 MCG TABLET PO SCH (08:20)
[2016-06-03] MEDS: FERROUS SULFATE 325 MG EC TABLET PO SCH (09:09)
[2016-06-03] MEDS: CHOLECALCIFEROL (VIT D3) 1,000 UNITS TABLET PO SCH (09:10)
[2016-06-03] MEDS: MULTIVITAMINS WITH MINERALS, THERAPEUTIC TABLET PO SCH (09:10)
[2016-06-03] MEDS: LORATADINE 10 MG TABLET PO SCH (09:11)
[2016-06-03] MEDS: FLUTICASONE PROPIONATE 50 MCG/SPRAY 16 GM NASAL SPRAY NASAL SCH ×2 (09:42→16:17)
[2016-06-03] MEDS: POLYETHYLENE GLYCOL 3350 17 GM PACKET PO SCH (16:17)
[2016-06-03] MEDS: HALOPERIDOL 10 MG TABLET PO SCH (21:00)
[2016-06-03] MEDS: DiphenhydrAMINE HCL 25 MG CAPSULE PO PRN (22:20)
[2016-06-03 22:21] VITALS: BP 127/64
[2016-06-04] MEDS: TraMADol HCL 50 MG TABLET PO PRN ×2 (02:13→11:03)
[2016-06-04] MEDS: LEVOTHYROXINE SODIUM 125 MCG TABLET PO SCH (06:35)
[2016-06-04] MEDS: FERROUS SULFATE 325 MG EC TABLET PO SCH ×3 (07:30→09:44)
[2016-06-04] MEDS: CHOLECALCIFEROL (VIT D3) 1,000 UNITS TABLET PO SCH ×3 (08:06→09:44)
[2016-06-04] MEDS: MULTIVITAMINS WITH MINERALS, THERAPEUTIC TABLET PO SCH ×3 (08:06→09:44)
[2016-06-04] MEDS: LORATADINE 10 MG TABLET PO SCH ×3 (08:06→09:44)
[2016-06-04] MEDS: FLUTICASONE PROPIONATE 50 MCG/SPRAY 16 GM NASAL SPRAY NASAL SCH ×2 (09:00→09:44)
[2016-06-04] MEDS: CYCLOBENZAPRINE HCL 10 MG TABLET PO PRN (11:04)
[2016-06-04] MEDS ORDERED: TRAM50TA4 PO (13:25)
== END 2016-06-04 12:30 | disposition home or self-care (01) | DRG 885 ==
LOC: EMS 18:58 → 3EC 22:14
PROVIDERS: ATTEND Psychiatry & Neurology Psychiatry
DX: F31.2 Bipolar disorder, current episode manic severe with psychotic features (principal); C91.10 Chronic lymphocytic leukemia of B-cell type not having achieved remission; I10 Essential (primary) hypertension; E03.9 Hypothyroidism, unspecified; J30.9 Allergic rhinitis, unspecified; G89.29 Other chronic pain; K59.00 Constipation, unspecified; D64.9 Anemia, unspecified; E55.9 Vitamin D deficiency, unspecified; Z91.19 Patient's noncompliance with other medical treatment and regimen; Z88.2 Allergy status to sulfonamides; Z79.899 Other long term (current) drug therapy; Z98.890 Other specified postprocedural states; Z91.040 Latex allergy status; Z82.49 Family history of ischemic heart disease and other diseases of the circulatory system
CPT/HCPCS: 84439; 84443; 87081; 96372; 99285; G0480; J1200; J1630; J2060

== ENCOUNTER 2016-08-08 09:06 | Emergency (ER) | payer MEDICARE, OTHER ==
[~2016-08-08] VITALS: Ht 154.9 cm; Wt 72.5 kg
[~2016-08-08 09:06] MED LIST changes: +CYCL10 PO; +TRAM50TA4 PO
[2016-08-08 09:55] LABS: HEMATOCRIT 41.4 % (36-46); HEMOGLOBIN 13.4 g/dL (12.0-16.0); MEAN CORPUSCULAR HEMOGLOBIN 28.2 pg (26.0-34.0); MEAN CORPUSCULAR HGB CONC 32.4 G/dL (31.0-37.0); MEAN CORPUSCULAR VOLUME 87 fL (80-100); PLATELET COUNT (AUTO) 258 K/uL (150-450); RED BLOOD CELL COUNT(AUTO) 4.76 MIL/uL (4.00-5.20)
[2016-08-08 10:02] LABS: ANION GAP 9 mmol/L (8-16); CALCIUM, TOTAL 9.5 mg/dL (8.8-10.5); CARBON DIOXIDE 29 mmol/L (22-29); CHLORIDE 101 mmol/L (98-107); CREATININE 0.78 mg/dL (0.60-1.30); GLOMERULAR FILTR. RATE CALC > 60 mL/min (>60); POTASSIUM 3.9 mmol/L (3.5-5.1); SODIUM SERUM 139 mmol/L (136-145); UREA NITROGEN, BLOOD 27 mg/dL (7-18)
[2016-08-08 10:07] LABS: ALANINE AMINOTRANSFERASE 38 U/L (12-78); ALBUMIN 4.1 g/dL (3.4-5.0); ASPARTATE AMINOTRANSFERASE 35 U/L (15-37); BILIRUBIN,TOTAL 1.1 mg/dL (0.1-1.0); TOTAL PROTEIN, SERUM 7.3 g/dL (6.4-8.2)
[2016-08-08 10:36] LABS: TOTAL CELLS COUNTED 100
[2016-08-08 10:40] LABS: EOSINOPHILS % (MANUAL) 1 % (1-6); LYMPHOCYTES % (MANUAL) 14 % (22-44); REACTIVE LYMPHOCYTES 81 % (0-0)
[2016-08-08 10:50] LABS: APPEARANCE,URINE CLEAR (CLEAR); GLUCOSE, URINE (UA) NEGATIVE (NEGATIVE); KETONES,URINE 15 mg/dL (NEGATIVE); LEUKOCYTE ESTERASE ,URINE NEGATIVE (NEGATIVE); OCCULT BLOOD,URINE NEGATIVE (NEGATIVE); PH,URINE 5.5 (5.0-8.0); PROTEIN,URINE NEGATIVE (NEGATIVE)
[2016-08-08 10:58] LABS: RBC,URINE 0-2 /HPF (0-2); SQUAMOUS EPITHELIAL CELL,UR Few /LPF (None Seen); WBC,URINE 0-2 /HPF (0-5)
[2016-08-08 10:59] LABS: FINE GRANULAR CASTS,URINE 0-2 /LPF (None Seen); HYALINE CASTS, URINE 0-2 /LPF (None Seen)
[2016-08-08] MEDS ORDERED: ACETAMINOPHEN 325 MG TABLET PO ONE (12:00)
[2016-08-08 12:02] VITALS: BP 142/74
== END 2016-08-08 12:07 | disposition home or self-care (01) ==
LOC: EMS 09:10 → EEVIPCON 09:10 → EMS 12:07
DX: F31.9 Bipolar disorder, unspecified (principal); D72.829 Elevated white blood cell count, unspecified; F20.9 Schizophrenia, unspecified; E03.9 Hypothyroidism, unspecified; I10 Essential (primary) hypertension; Z88.2 Allergy status to sulfonamides
CPT/HCPCS: 36415; 80053; 80307; 81001; 85025; 99284; G0480

== ENCOUNTER 2016-08-09 12:28 | Emergency (ER) | payer MEDICARE, OTHER ==
[~2016-08-09] VITALS: Ht 157.5 cm; Wt 72.7 kg
[2016-08-09 12:31] VITALS: BP 108/73
== END 2016-08-09 13:25 | disposition home or self-care (01) ==
LOC: EMS 12:30
DX: F20.9 Schizophrenia, unspecified (principal); C95.90 Leukemia, unspecified not having achieved remission; I10 Essential (primary) hypertension; E03.9 Hypothyroidism, unspecified; F31.9 Bipolar disorder, unspecified; Z76.5 Malingerer [conscious simulation]; Z59.0 Homelessness; Z88.2 Allergy status to sulfonamides
CPT/HCPCS: 99281

== ENCOUNTER 2016-08-14 15:35 | Emergency (ER) | payer MEDICARE, OTHER | END 2016-08-14 17:45 | disposition home or self-care (01) | LOC: EMS 15:39 | DX: F31.9 Bipolar disorder, unspecified (principal); F60.9 Personality disorder, unspecified; I10 Essential (primary) hypertension; F20.9 Schizophrenia, unspecified; E03.9 Hypothyroidism, unspecified; Z91.19 Patient's noncompliance with other medical treatment and regimen | CPT/HCPCS: 99285 ==